=== PATIENT | male | born 1975 | race Caucasian/White ===

== ENCOUNTER 2021-01-31 01:12 | Inpatient (IN) | payer OTHER, SELFPAY ==
[2021-01-31] VITALS (32 sets, daily range): BP systolic 111–165; BP diastolic 51–127; PULSE 57–91; RESP 10–22; TEMP 36.4–37.1; O2SAT 94–100; BMI 32.9
--- NOTE | ~2021-01-31 | CT_ITS ---
EXAMINATION: CTA chest PE protocol DATE: 01/31/2021 03:13 INDICATION: Chest pain. TECHNIQUE: Computed tomography angiography (CTA) of the chest was performed with 100 mL Omnipaque-350 intravenous contrast timed to evaluate the pulmonary arteries. Coronal maximum intensity projection 3D-reconstructions were created by the technologist. Automated exposure control and iterative reconst ruction technique were employed. The dose-length product was 930.12 mGy-cm. COMPARISON: Chest 2 views 01/31/2021 FINDINGS: There is mild emphysema. There is mild atelectasis bilaterally. Calcified bilateral lung no dules are consistent with old granulomatous disease. No pleural effusion. There is no pulmonary embol us. There is severe cervical spondylosis and mild thoracic spondylosis. There is mild chronic anterio r wedging of T7 vertebral body. IMPRESSION: 1. No acute pulmonary embolism. 2. Mild emphysema. Reviewed, dictated and finalized at location A.
--- NOTE | ~2021-01-31 | XR_ITS ---
EXAMINATION: XR chest 2V DATE: 01/31/2021 02:04 INDICATION: Chest pain. TECHNIQUE: Frontal and lateral views of the chest were obtained. COMPARISON: Chest single view 07/01/2013, chest CT 01/31/2021 FINDINGS: There are lucencies in the upper lungs, consistent with emphysema. No pleural effusion or p neumothorax. The heart size is normal. There is mild chronic anterior wedging of a midthoracic verteb ral body. IMPRESSION: 1. Emphysema. Reviewed, dictated and finalized at location A. IMPRESSION: 1. Emphysema.
--- NOTE | 2021-01-31 01:20 | ECG_ITS ---
Measurements Intervals [place] Rate: 87 P: 33 CT: 154 QRS: 40 QRSD: 98 T: 39 QT: 366 QTc: 440 Interpretive Statements SINUS RHYTHM POSSIBLE LEFT ATRIAL ENLARGEMENT INCOMPLETE RIGHT BUNDLE BRANCH BLOCK BORDERLINE ECG Electronically Signed On 01-31-2021 5:25:00 CDT by Hayden Loja D.O.
[2021-01-31] MEDS: ASPIRIN 81 MG CHEWABLE TABLET 324 MG PO (01:28)
[2021-01-31 01:29] LABS: Basophils Absolute Auto 0.1 K/mm3 (0.0-0.1); Basophils Percent Auto 0.7 % (0.2-1.2); Eosinophils Absolute Auto 0.1 K/mm3 (0-0.3); Eosinophils Percent Auto 1.3 % (0-4.4); Hematocrit 48.6 % (42.0-52.0); Hemoglobin 16.6 g/dL (14.0-18.0); Immature Granulocyte Absolute 0.02 K/mm3 (0.00-0.031); Immature Granulocyte Percent A 0.2 % (0-0.5); Lymphocytes Absolute Auto 3.06 K/mm3 (0.9-3.2); Lymphocytes Percent Auto 35.4 % (18.3-44.2); Mean Corpuscular HGB Conc 34.2 g/dl (32-36); Mean Corpuscular Hemoglobin 31.1 pg (26-34); Mean Corpuscular Volume 91.2 fl (80-100); Mean Platelet Volume 10.2 fl (7.4-10.4); Monocytes Absolute Auto 0.8 K/mm3 (0.1-0.6); Monocytes Percent Auto 8.9 % (2.6-8.5); Neutrophils Absolute Auto 4.6 K/mm3 (1.3-6.7); Neutrophils Percent Auto 53.5 % (45.5-73.1); Platelet Count Result 177 k/mm3 (150-375); Red Blood Count 5.33 M/mm3 (4.6-6.20); Red Cell Distribution Width 12.7 % (11.5-14.5); White Blood Count 8.7 K/mm3 (4.5-10.0)
--- NOTE | 2021-01-31 01:37 | ED.CHESTPAIN ---
HPI - Chest Pain General Chief Complaint: Chest Pain Stated Complaint: CP Time Seen by Provider: 01/31/21 01:18 Source: RN notes reviewed History of Present Illness HPI narrative: Patient presents emergency department from home for chest pain patient states that over the last month has been having intermittent left-sided chest pain he states he has had more frequent episodes over the past 2 days pain is located in the left upper chest and goes in the left shoulder into the left back the pain is described as a pressure sensation and will last for several minutes and then resolve he states it is associated with some shortness of breath he denies any fevers or chills abdominal pain nausea vomiting he denies any current pain patient denies any previous cardiac history Related Data Home Medications Medication Instructions Recorded Confirmed atorvastatin 01/31/21 esomeprazole magnesium [Nexium] 20 mg PO DAILY 01/31/21 hydrocodone-acetaminophen tablet 01/31/21 Allergies Allergy/AdvReac Type Severity Reaction Status Date / Time No Known Allergies Allergy Unverified 01/31/21 01:21 Review of Systems Review of Systems: Gen.: Denies fevers or chills ENT: Denies congestion Respiratory: Reports shortness of breath with chest CV: See HPI GI: Denies abdominal pain nausea, emesis or diarrhea Musculoskeletal: Denies back pain or muscle pain Neuro: Denies numbness, tingling, weakness or focal weakness Skin: Denies rash Except as documented, all other systems reviewed and negative [facility] Past Medical History Medical History (Updated 01/31/21 @ 05:11 by Jesse Tolentino DO) Hypercholesterolemia Social History Social History (Updated 01/31/21 @ 05:05 by Jesse Tolentino DO) Smoking packs per day: 2.5 Smoking cigarettes per day: 50.0 Smoking status: Current every day smoker Exam Narrative: APPEARANCE: No acute distress, nontoxic, resting in bed EYES: EOMI HEENT: Normocephalic, atraumatic, OMM RESPIRATORY: No respiratory distress Clear to auscultation bilaterally with no rhonchi wheezing or rales. CARDIOVASCULAR: Regular rate and rhythm without murmurs rubs or gallops. ABDOMINAL: Soft, nontender, nondistended, no rebound or guarding MUSCULOSKELETAl: Moves all extremities. No clubbing, cyanosis or edema. NEURO: Awake and alert. Following commands, speech normal, no focal deficits SKIN:: Warm, dry. No rashes lesions or abrasions PSYCHIATRIC: Normal affect/mood, Course Course Emergency Course: Patient is remained asymptomatic through stay in ED with no chest pain while in the ED Called discussed with Dr. Sands presentation work-up agrees with admission to the chest pain center Discussed with patient and family results of workup and diagnosis. Discussed need for admission. Patient and family understand and agree to current treatment plan Shortly after admission orders placed troponin came back elevated called and updated Dr. Sands will change admission I am you. We discussed anticoagulation the patient has had no chest pain throughout his stay in ED she recommends no anticoagulation at this time Vital Signs Vital signs: Vital Signs Temperature 97.6 F 01/31/21 01:16 Pulse Rate 90 01/31/21 01:16 Respiratory Rate 17 01/31/21 01:16 Blood Pressure 164/127 H 01/31/21 01:16 Pulse Oximetry 97 01/31/21 01:16 Temperature 97.6 F 01/31/21 01:16 Pulse Rate 74 01/31/21 04:58 Respiratory Rate 18 01/31/21 04:58 Blood Pressure 140/89 01/31/21 04:58 Pulse Oximetry 100 01/31/21 04:58 MDM - Chest Pain Lab Data Result diagrams: 01/31/21 01:24 01/31/21 01:24 Labs: Lab Results 01/31/21 01/31/21 01/31/21 Range/Units 01:23 01:23 01:24 WBC 8.7 (4.5-10.0) K/mm3 RBC 5.33 (4.6-6.20) M/mm3 Hgb 16.6 (14.0-18.0) g/dL Hct 48.6 (42.0-52.0) % MCV 91.2 (80-100) fl MCH 31.1 (26-34) pg MCHC 34.2 (32-36) g/dl RDW 12.7 (11
[2021-01-31 01:43] LABS: Prothrombin Time 12.9 Seconds (11.1-14.7)
[2021-01-31 01:44] LABS: Partial Thromboplastin Time 27.9 SECONDS (22.3-36.8)
[2021-01-31 01:50] LABS: Anion Gap 8 mmol/L (8-16); Blood Urea Nitrogen 19 mg/dL (9-20); Calcium 9.8 mg/dL (8.4-10.2); Carbon Dioxide 27 mmol/L (22-30); Chloride 106 mmol/L (98-107); Estimated CRCL calculation 104 ml/min; Estimated Glomerular Filt Rate > 60; Glucose 131 mg/dL (65-110); Potassium 3.9 mmol/L (3.4-5.0); Sodium 141 mmol/L (137-145)
[2021-01-31 02:03] LABS: Troponin I 0.013 ng/mL (0.000-0.034)
--- NOTE | 2021-01-31 02:11 | PC.NURSE ---
Called lab to add on Hepatic, D-Dimer 0216
[2021-01-31 02:24] LABS: D Dimer 0.64 ug/mL (<0.48)
[2021-01-31 02:28] LABS: Alanine Aminotransferase 18 U/L (4-50); Albumin Level 4.7 g/dL (3.5-5.1); Alkaline Phosphatase 81 U/L (38-126); Aspartate Amino Transferase 30 U/L (17-59); Bilirubin,Total 0.8 mg/dL (0.2-1.3)
[2021-01-31 05:04] LABS: Troponin I 0.078 ng/mL (0.000-0.034)
--- NOTE | 2021-01-31 05:15 | ECG_ITS ---
Measurements Intervals [place] Rate: 76 P: 44 CA: 151 QRS: 10 QRSD: 104 T: 30 QT: 379 QTc: 428 Interpretive Statements SINUS RHYTHM POSSIBLE LEFT ATRIAL ENLARGEMENT INCOMPLETE RIGHT BUNDLE BRANCH BLOCK BASELINE ARTIFACT- II, III, AVR, AVF, V1, V3-V6 BORDERLINE ECG Electronically Signed On 01-31-2021 5:28:11 CDT by Hayden DHILLON
[2021-01-31 05:39] LABS: Cholesterol 154 mg/dL (0-200); HDL Direct 38 mg/dL; Triglycerides 83 mg/dL (<150)
--- NOTE | 2021-01-31 05:44 | ADMGEN ---
This patient, Anup Yates, was admitted to IMU Room 205-01. Patient/family oriented to hospital policies and general routines including ID bracelet, bed and alarms, visiting hours, pain management, procedures, bathroom and other care routines, personal items, smoking policy, room service/diet, and visiting hours. Information on how to activate the Rapid Response Team has been discussed. Patient/Family are encouraged to report perceived risks to care and to ask questions if they do not understand what they are told or what they should do.
[2021-01-31 05:50] LABS: LDL Cholesterol Direct 89 mg/dL
--- NOTE | 2021-01-31 08:06 | PM.IMHP ---
H&P: HPI History of Present Illness Date/Time: 01/31/21 08:06 Chief Complaint: Chest pain, Acute coronary syndrome Narrative: Mr. elena Da Silva is a 45-year-old white male who came to the emergency room when he woke with chest pain yesterday. 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 He describes this as a pressure and tightness that starts in his left shoulder and axilla going across his chest, radiating around to his back and interscapular area, associated with sweats. It seems to be resolved with rest. Sometimes it seems positional and can be relieved by stretching. It seems to be increasing in frequency and for the last couple of nights he is actually awakened with this intense chest discomfort which was new. He came to the emergency room last night and had elevated troponin. He has been pain-free since admission. He has a history of hyperlipidemia and 2.5 pack per day smoking. No hypertension or diabetes, and no bleeding problems. He was diagnosed with prostate cancer recently is under going evaluation, considering options which may include prostatectomy. PMD is Dr. Rod. Review of Systems Constitutional: Constitutional: Denies fatigue, Denies lethargy and Denies weakness Eyes: Eyes: Reports no additional eye complaints ENT: Denies epistaxis Cardiovascular: Cardiovascular: Reports chest pain, Reports diaphoresis, Denies pedal edema, Denies leg edema, Denies lightheadedness and Denies palpitations Respiratory: Respiratory: Denies cough, Denies dyspnea and Denies dyspnea on exertion Gastrointestinal: Gastrointestinal: Denies abdominal pain and Denies hematochezia Genitourinary: Genitourinary: Denies hematuria Musculoskeletal: Musculoskeletal: Reports arthralgias Integumentary/Breasts: Skin/Breast: Denies rash Neurologic: Denies headache(s) Psychiatric: Psychiatric: Denies behavioral changes [facility] Past Medical History Medical History Hypercholesterolemia Prostate cancer Skin cancer Tobacco use Family History Family History (Updated 01/31/21 @ 08:34 by Anusha Sands MD) Mother Pancreatic cancer Father , in his 70s, patient not sure why, no heart disease No problems noted. 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 Smoking packs per day: 2.5 Smoking cigarettes per day: 50.0 Years smoked: 30 Smoking pack-years: 75.00 Smoking status: Current every day smoker Tobacco type: cigarettes Second hand tobacco smoke exposure: Yes Alcohol intake: never Alcohol use details: Two drinks a month Substance use: current Substance use type: marijuana Living arrangements: with family Occupation/Education: occupation Additional occupation/education comments: [employer] work Spiritual care concerns: No Meds Home Medications and Allergies Home Medications Medication Instructions Recorded Confirmed Type atorvastatin 20 mg PO DAILY 01/31/21 01/31/21 History esomeprazole magnesium [Nexium] 20 mg PO DAILY 01/31/21 01/31/21 History hydrocodone-acetaminophen 10 tablet PO QID PRN 01/31/21 01/31/21 History Allergies Allergy/AdvReac Type Severity Reaction Status Date / Time No Known Allergies Allergy Unverified 01/31/21 01:21 Vital Signs Vital Signs - 24 hr 01/31/21 01:16 01/31/21 01:20 01/31/21 03:08 Temperature 97.6 F Pulse Rate 90 86 90 Respiratory Rate 17 14 Blood Pressure 164/127 H 145/90 H Pulse Oximetry 97 97 01/31/21 03:15 01/31/21 04:58 01/31/21 05:39 Temperature 97.9 F Pulse Rate 91 74 85 Respiratory Rate 15 18 18 Blood Pressure 111/72 140/89 156/85 H Pulse Oximetry 99 100 100 01/31/21 06:00 Temperature Pulse Rate 74 Respiratory Rate Blood Pressure Pulse Oximetry Exam Const: General: comf
--- NOTE | 2021-01-31 08:30 | WPDMODSED ---
Moderate Sedation Note-Pt Data Patient Data Allergies Allergy/AdvReac Type Severity Reaction Status Date / Time No Known Allergies Allergy Unverified 01/31/21 01:21 Home Medications Medication Instructions Recorded Confirmed Type atorvastatin 20 mg PO DAILY 01/31/21 01/31/21 History esomeprazole magnesium [Nexium] 20 mg PO DAILY 01/31/21 01/31/21 History hydrocodone-acetaminophen 10 tablet PO QID PRN 01/31/21 01/31/21 History Current Medications: Active Medications Acetaminophen (Acetaminophen 325 Mg Tablet) 650 mg PO Q4H PRN PRN Reason: Mild Pain (1-3) Al Hydrox/Mg Hydrox/Simethicone (Mag Hydrox/Al Hydrox/Simeth 30 Ml Udc) 30 ml PO Q6H PRN PRN Reason: Indigestion Aspirin (Aspirin 81 Mg Chewable Tablet) 81 mg PO DAILY@0800 QUINT[place] Nitroglycerin (Nitroglycerin Sl 0.4 Mg Tablet) 0.4 mg SUBLINGUAL Q5MIN PRN PRN Reason: Chest Pain Ondansetron HCl (Ondansetron Inj 4 Mg/2 Ml Vial) 4 mg IV PUSH Q6H PRN PRN Reason: Nausea And Vomiting Sedation/Anesthesia: No previous sedation/anesthesia problems (including family history). [facility] Past Medical History Medical History (Updated 01/31/21 @ 05:11 by Jesse Tolentino DO) Hypercholesterolemia Social History Social History (Updated 01/31/21 @ 05:05 by Jesse Tolentino DO) Smoking packs per day: 2.5 Smoking cigarettes per day: 50.0 Years smoked: 30 Smoking pack-years: 75.00 Smoking status: Current every day smoker Tobacco type: cigarettes Second hand tobacco smoke exposure: Yes Alcohol intake: never Substance use: current Spiritual care concerns: No Mod Sed Physical Exam Physical Exam Pre Procedural Exam: Normal: Throat Hours since solid foods: 10 Hours since liquid intake: 10 Mallampati Classification: class II Internal Medicine - PN: Obj Da Vital Signs Vital Signs: Vital Signs - 24 hr 01/31/21 01:16 01/31/21 01:20 01/31/21 03:08 Temperature 36.4 C Pulse Rate 90 86 90 Respiratory Rate 17 14 Blood Pressure 164/127 H 145/90 H Pulse Oximetry 97 97 01/31/21 03:15 01/31/21 04:58 01/31/21 05:39 Temperature 36.6 C Pulse Rate 91 74 85 Respiratory Rate 15 18 18 Blood Pressure 111/72 140/89 156/85 H Pulse Oximetry 99 100 100 01/31/21 06:00 01/31/21 08:00 Temperature 36.4 C Pulse Rate 74 86 Respiratory Rate 14 Blood Pressure 138/78 Pulse Oximetry 98 Meds/Results Medications: Active Medications Generic Name Dose Route Start Last Admin Trade Name Freq PRN Reason Stop Dose Admin Acetaminophen 650 mg 01/31/21 05:00 Acetaminophen 325 Mg Tablet PO Q4H PRN Mild Pain (1-3) Al Hydrox/Mg Hydrox/Simethicone 30 ml 01/31/21 05:00 Mag Hydrox/Al Hydrox/Simeth 30 Ml Udc PO Q6H PRN Indigestion Aspirin 81 mg 01/31/21 08:00 Aspirin 81 Mg Chewable Tablet PO DAILY@0800 [place] Nitroglycerin 0.4 mg 01/31/21 05:00 Nitroglycerin Sl 0.4 Mg Tablet SUBLINGUAL Q5MIN PRN Chest Pain Ondansetron HCl 4 mg 01/31/21 05:00 Ondansetron Inj 4 Mg/2 Ml Vial IV PUSH Q6H PRN Nausea And Vomiting Radiology Results: ITS Impressions Chest X-Ray 01/31/21 06:52 IMPRESSION: 1. Emphysema. Chest CTA 01/31/21 07:28 IMPRESSION: 1. No acute pulmonary embolism. 2. Mild emphysema. Labs CBC & Chem 7: 01/31/21 01:24 01/31/21 01:24 Labs: Laboratory Results - last 24 hr 01/31/21 01/31/21 01/31/21 01:23 01:23 01:24 WBC 8.7 RBC 5.33 Hgb 16.6 Hct 48.6 MCV 91.2 MCH 31.1 MCHC 34.2 RDW 12.7 Plt Count 177 MPV 10.2 Immature Gran % (Auto) 0.2 Neut % (Auto) 53.5 Lymph % (Auto) 35.4 [place] % (Auto) 8.9 H Eos % (Auto) 1.3 Baso % (Auto) 0.7 Lymph # (Auto) 3.06 [place] # (Auto) 0.8 H Eos # (Auto) 0.1 Baso # (Auto) 0.1 Abs Immat Gran (auto) 0.02 Absolute Neuts (auto) 4.6 Absolute Nucleated RBC 0.0 Nucleated RBC % 0.0 PT INR APTT D-Dimer
--- NOTE | 2021-01-31 10:12 | WPDCARDPROC ---
Cardiac Cath Procedure Note Date of procedure:: 01/31/21 Performing physician:: Augusto Lee MD Procedure Procedure note:: CARDIAC CATHETERIZATION AND PERCUTANEOUS CORONARY INTERVENTION REPORT DATE OF PROCEDURE: 01/31/2021 INDICATION FOR PROCEDURE: Acute coronary syndrome-non ST-elevation myocardial infarction BRIEF CLINICAL HISTORY: 45-year-old male with no known prior cardiac history; tobacco abuse presented to [facility] with worsening anginal chest pain for about 1 month. His EKG showed sinus rhythm, incomplete right bundle branch block, no acute ST segment abnormality. First set of troponin was negative, seconds and was minimally elevated at 0.078. He was seen by Dr. Sands, and referred for coronary angiogram in the setting of non ST-elevation myocardial infarction. Benefits and risks of the procedure were discussed with the patient in depth, and informed consent was obtained prior to the procedure. Risks of the procedure include but are not limited to vascular complications including groin hematoma, retroperitoneal bleed, vessel perforation; periprocedural [place], cardiac arrhythmias, stroke, contrast induced nephropathy, and . After discussing all the benefits, risks and alternatives, patient was willing to proceed with the procedure. PROCEDURES PERFORMED: 1. Left heart catheterization- Selective left and right coronary angiogram; left ventriculogram and hemodynamic assessment 2. Complex percutaneous coronary intervention- balloon angioplasty and stenting of high-grade, hazy stenosis in the mid LAD using 3.5 x 38 mm resolute vinicius zotarolimus eluting stent (adjunctive aspiration thrombectomy using export catheter; intracoronary nitroprusside, nitroglycerin, adenosine, eptifibatide) 3. Defibrillation x1 for VFib cardiac arrest ( PCI was complicated by no-reflow phenomena, and after gnosticism of flow in the LAD, patient went into ventricular fibrillation which was successfully defibrillated x1 with gnosticism of sinus rhythm) 3. Selective right common femoral angiogram 4. Moderate sedation-CPT code 31621 MODERATE SEDATION: Midazolam 4 mg; fentanyl 100 mcg. Start time 0837 , Stop time 0957 ; Total [id number] time 80 minutes; Jeremiah Gnuter RN was trained observer for moderate sedation. ACCESS SITE: Right common femoral artery PROCEDURE NOTE: After obtaining informed consent, patient was brought to catheterization lab and prepped and draped in a usual sterile manner. After local anesthesia with lidocaine, right common femoral artery access was taken with micropuncture needle followed by insertion of a 6 Montenegrin sheath. Selective left and right coronary angiogram was performed using 5 Mont[place]grin JL4 and JR4 catheters respectively. Orthogonal views were taken. Next, a 5 Montenegrin pigtail catheter was advanced in the LV cavity and was flushed with normal saline. LV pressure measurement was performed. After this, left ventriculogram was performed. The catheter was flushed again, and gradient across the aortic valve was measured on the pullback of the catheter. Selective right common femoral angiogram was performed after PCI which showed high bifurcating femoral artery. Closure device was not deployed. Manual pressure was used for local hemostasis. FINDINGS: LEFT MAIN CORONARY: the left main coronary artery is a large caliber vessel, without angiographically significant focal stenosis. The vessel trifurcates into LAD, ramus intermedius and dominant left circumflex artery. LEFT ANTERIOR DESCENDING ARTERY: The LAD is a medium to large caliber vessel in the proximal segment; becomes medium caliber vessel in the mid segment, mildly tortuous and reaches LV apex. There is high-grade 80-90% stenosis in the mid segment at the origin of the small to medium caliber diagonal branch , which has mild plaque in the proximal segment. There is haziness distal to the high-grade stenosis suggestive of thrombus. RAMUS INTERMEDIUS: Larg
--- NOTE | 2021-01-31 11:49 | WPDCNINT ---
Assessment and Plan Assessment and plan (1) Acute non-ST elevation myocardial infarction (NSTEMI): Code(s): I21.4 - Non-ST elevation (NSTEMI) myocardial infarction Status: Acute Assessment and Plan: Patient presented with chest pain NSTEMI status post coronary angiogram status post balloon angioplasty and stenting of high-grade 80-90% hazy stenosis in the mid LAD with drug-eluting stent. Post roman catholic of flow in the LAD patient went into VFib arrest, status post defibrillation x1 along with CPR with roman catholic of sinus rhythm. EF 60-65% -cardiology following the patient closely -patient will require dual antiplatelet therapy, statin, beta-perry and may be CHEN-inhibitor since he is also hypertensive (2) Tobacco use: Code(s): Z72.0 - Tobacco use Status: Acute Assessment and Plan: Patient states he smokes 2 and half to 3 packs per day for approximately 30 years along with marijuana -discussed with him regarding cessation of smoking to which she is very receptive -also counseled patient on cessation of marijuana smoking to which he is also agreeable (3) Prostate cancer: Code(s): C61 - Malignant neoplasm of prostate Status: Acute Assessment and Plan: Patient is considering prostatectomy versus more conservative management (4) Hypercholesterolemia: Code(s): E78.00 - Pure hypercholesterolemia, unspecified Status: Acute Assessment and Plan: Will discuss with cardiology regarding starting statins Additional Plan Discussed with patient updated with his condition and plan of care. He is aware that he has to lay flat in bed for some time before sheath is pulled out and once his sheath is out he will have to lay flat for a few more hours. Code status: Full code Critical care time spent: 43 minutes Discuss with This dictation may have been done utilizing a voice recognition system. Attempts have been made to correct errors. However, there may be uncorrected grammatical, spelling, and recognition errors present. Due to a high probability of clinically significant, life threatening deterioration, the patient required my highest level of preparedness to intervene emergently and I personally spent this critical care time directly and personally managing the patient. This critical care time included obtaining a history; examining the patient; pulse oximetry; ordering and review of studies; arranging urgent treatment with development of a management plan; evaluation of patient's response to treatment; frequent reassessment; and discussions with other providers. It was exclusive of separately billable procedures and treating other patients and teaching time. Please see Assessment and Plan section and the rest of the note for further information on patient assessment and treatment Material Spreader Consult Note Consult date: 01/31/21 Time Seen: 10:40 Reason for consult: Chest pain, NSTEMI status post coronary angiogram status post balloon angioplasty and stenting of high-grade 80-90% hazy stenosis in the mid LAD with drug-eluting stent. Post roman catholic of flow in the LAD patient went into VFib arrest, status post defibrillation x1 along with CPR with roman catholic of sinus rhythm. EF 60-65% HPI: Anup Yates is a 45 year old male with past medical history of prostate CA, hypercholesterolemia, skin cancer and tobacco abuse presented to the ED on 01/31/2021 with complains of chest pain. 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 He described the chest discomfort and pain this morning as pressure and tightness that radiated to his left shoulder across his chest. Related around the back. Patient also complained of shortness of breath, diaphoresis. He states that his pain has been worsening since the last few days and early this morning he was awakened with intense chest discomfort. In the ER 1st set
--- NOTE | 2021-01-31 12:25 | PC.NURSE ---
This patient, Anup Yates, was received from cardiac hoisting laborer on 01/31/21 at 1030. Patient given post-cath instructions verbally by hoisting laborer nurse and myself. Report also received from nurse Alonzo in IMU since patient moved from room 205.
[2021-01-31 13:03] LABS: Troponin I 0.146 ng/mL (0.000-0.034)
[2021-01-31] MEDS: hydrALAZINE HCL 20 MG/ML VIAL 10 MG IV PUSH (13:10)
[2021-01-31] MEDS: HYDROcodone/acetaminophen (*CRX) 5-325 MG TABLET 1 TAB PO ×2 (14:34→19:15)
[2021-01-31] MEDS: NICOTINE (*PBKC) 14 MG PATCH 1 PATCH TRANSDERM (16:35)
[2021-01-31] MEDS: METOPROLOL TARTRATE 25 MG TABLET PO ×2 (16:36→19:59)
[2021-01-31] MEDS: SODIUM CHLORIDE 0.9% IV 1,000 ML 125 ML IV CONT (19:18)
[2021-01-31] MEDS: TICAGRELOR 90 MG TABLET PO (20:00)
[2021-02-01] VITALS (7 sets, daily range): BP systolic 137–158; BP diastolic 77–87; PULSE 59–88; RESP 11–24; TEMP 36.6–37.1; O2SAT 95–97
[2021-02-01 04:36] LABS: Basophils Percent Auto 0.4 % (0.2-1.2); Eosinophils Percent Auto 0.3 % (0-4.4); Hematocrit 46.9 % (42.0-52.0); Hemoglobin 16.2 g/dL (14.0-18.0); Immature Granulocyte Absolute 0.02 K/mm3 (0.00-0.031); Immature Granulocyte Percent A 0.2 % (0-0.5); Lymphocytes Absolute Auto 1.68 K/mm3 (0.9-3.2); Lymphocytes Percent Auto 17.3 % (18.3-44.2); Mean Corpuscular HGB Conc 34.5 g/dl (32-36); Mean Corpuscular Hemoglobin 31.3 pg (26-34); Mean Corpuscular Volume 90.7 fl (80-100); Mean Platelet Volume 10.4 fl (7.4-10.4); Monocytes Absolute Auto 0.7 K/mm3 (0.1-0.6); Monocytes Percent Auto 6.7 % (2.6-8.5); Neutrophils Absolute Auto 7.3 K/mm3 (1.3-6.7); Neutrophils Percent Auto 75.1 % (45.5-73.1); Platelet Count Result 183 k/mm3 (150-375); Red Blood Count 5.17 M/mm3 (4.6-6.20); Red Cell Distribution Width 12.6 % (11.5-14.5); White Blood Count 9.7 K/mm3 (4.5-10.0)
[2021-02-01 04:46] LABS: Alanine Aminotransferase 22 U/L (4-50); Albumin Level 4.3 g/dL (3.5-5.1); Alkaline Phosphatase 76 U/L (38-126); Anion Gap 8 mmol/L (8-16); Aspartate Amino Transferase 64 U/L (17-59); Blood Urea Nitrogen 16 mg/dL (9-20); Carbon Dioxide 24 mmol/L (22-30); Chloride 107 mmol/L (98-107); Estimated CRCL calculation 131 ml/min; Estimated Glomerular Filt Rate > 60; Glucose 128 mg/dL (65-110); Magnesium 1.7 mg/dL (1.6-2.3); Phosphorus 3.5 mg/dL (2.5-4.5); Potassium 3.7 mmol/L (3.4-5.0); Sodium 139 mmol/L (137-145)
[2021-02-01] MEDS: TICAGRELOR 90 MG TABLET PO (08:01)
[2021-02-01] MEDS: METOPROLOL TARTRATE 25 MG TABLET PO (08:01)
[2021-02-01] MEDS: ASPIRIN 81 MG ENTERIC TABLET PO (08:01)
[2021-02-01] MEDS: PANTOPRAZOLE 40 MG TABLET PO (08:01)
[2021-02-01] MEDS: ATORVASTATIN 40 MG TABLET 80 MG PO (08:01)
--- NOTE | 2021-02-01 11:06 | PM.DS ---
DS: Admitting Diagnosis Discharge Date February 01, 2021 Admitting Diagnosis Acute coronary syndrome DS: Discharge Diagnosis Discharge Diagnosis (1) Acute coronary syndrome: Code(s): I24.9 - Acute ischemic heart disease, unspecified Status: Acute (2) Tobacco use: Code(s): Z72.0 - Tobacco use Status: Acute DS: Summary Hospital Course Reason for hospitalization: Chest pain/acute coronary syndrome Hospital Course: This is a 45-year-old man who was hospitalized with intermittent chest pain. He has been having the symptoms for between 1 and 2 years that have been alleviated with rest. He had a symptom episode that was more prolonged it is sustained and so he came to the emergency room where he was evaluated and admitted. He was seen in the consultation by Dr. Sands who recommended left heart catheterization. That was done yesterday by Dr. Lee. He was found to have severe single-vessel coronary disease with high-grade stenosis in the mid LAD. PCI of this was recommended and was carried out successfully but the intervention was difficult and complex. The patient patient had normal left ventricular systolic function and no circumflex or right coronary disease. Following initial pre dilatation of the mid LAD with balloon angioplasty there was no reflow phenomenon after which the patient became very unstable. He received treatment of this in the [employer] with intracoronary nitroglycerin a Brad and Integrilin and then following stenting of the LAD using a 3.5 x 38 mm drug-eluting stent he had a good anatomical result with orthodoxy of TANNA 3 flow in the vessel and a good result after that. When he had no reflow in the [employer] he did have an episode of ventricular fibrillation that had to be counter shocked. Despite all of that is troponin only went up to .1 after the procedure his electrocardiogram remained normal and he is totally asymptomatic today and appears to be a appropriate candidate for discharge. His discharge medications include aspirin, Brilinta as well as high-dose atorvastatin. He was on low-dose atorvastatin prior to admission. He will be advised not to return to work and to restrict himself to sedentary activity until being seen in the office. He was to not lift more than 20 lb for the next 5 days he is not to drive for the next 5 days. He will be seen in the office by Dr. Sands in 2-3 weeks for follow-up. Time spent discussing smoking cessation with patient: more than 10 minutes Status at Discharge Functional status at discharge: independent ambulation Overall status at discharge: patient is back to baseline Time Spent with Patient Time attestation: Total time spent providing and/or coordinating discharge services: Time spent: Greater than 30 minutes Exam Const: General: comfortable and no acute distress Other: Patient is not lift more than 20 lb for the next 5 days and is not to return to driving or return to work for 1 week HENMT: Mouth: Yes moist mucous membranes Eyes: Sclera: sclerae normal Pupils: Equal, round and reactive pupils present Neck: Neck: supple and no JVD Thyroid: thyroid normal Resp: Effort & Inspection: normal respiratory effort Auscultation: clear to auscultation bilaterally Cardio: Rate: regular rate Rhythm: regular rhythm Other: No murmur no gallop GI: GI Palp: Yes Soft to palpation Auscultation: normal bowel sounds Skin: General skin exam: normal color Neuro: General: gait normal Extrem: General: normal to inspection Psych: Mental Status: mental status grossly normal DS: Data Data Completed and Pending Labs on day of discharge: Labs from last 24 hours 02/01/21 02/01/21 01/31/21 04:28 04:28 10:48 WBC 9.7 RBC 5.17 Hgb 16.2 Hct 46.9 MCV 90.7 MCH 31.3 MCHC 34.5 RDW 12.6 Plt Count 183 MPV 10.4 Immature Gran % (Auto) 0.2 Neut % (Auto) 75.1 H Lymph % (Auto) 17.3 L Stoddard % (Auto) 6.7 Eos % (Au
--- NOTE | 2021-02-01 13:46 | WPDINTPN ---
Progress Note: A&P Assessment and Plan (1) Acute non-ST elevation myocardial infarction (NSTEMI): Code(s): I21.4 - Non-ST elevation (NSTEMI) myocardial infarction Status: Acute Assessment and Plan: Patient presented with chest pain NSTEMI status post coronary angiogram status post balloon angioplasty and stenting of high-grade 80-90% hazy stenosis in the mid LAD with drug-eluting stent. Post zoroastrian of flow in the LAD patient went into VFib arrest, status post defibrillation x1 along with CPR with zoroastrian of sinus rhythm. EF 60-65% -cardiology following the patient closely -patient is on antiplatelet therapy, statin therapy and beta-perry (2) Tobacco use: Code(s): Z72.0 - Tobacco use Status: Acute Assessment and Plan: Patient states he smokes 2 and half to 3 packs per day for approximately 30 years along with marijuana -discussed with him regarding cessation of smoking to which she is very receptive -also counseled patient on cessation of marijuana smoking to which he is also agreeable (3) Prostate cancer: Code(s): C61 - Malignant neoplasm of prostate Status: Acute Assessment and Plan: Patient is considering prostatectomy versus more conservative management (4) Hypercholesterolemia: Code(s): E78.00 - Pure hypercholesterolemia, unspecified Status: Acute Assessment and Plan: Continue high-dose statin Additional Plan Discussed with patient updated with his condition and plan of care. Code status: Full code Critical care time spent: [address] Briscoe This dictation may have been done utilizing a voice recognition system. Attempts have been made to correct errors. However, there may be uncorrected grammatical, spelling, and recognition errors present. Due to a high probability of clinically significant, life threatening deterioration, the patient required my highest level of preparedness to intervene emergently and I personally spent this critical care time directly and personally managing the patient. This critical care time included obtaining a history; examining the patient; pulse oximetry; ordering and review of studies; arranging urgent treatment with development of a management plan; evaluation of patient's response to treatment; frequent reassessment; and discussions with other providers. It was exclusive of separately billable procedures and treating other patients and teaching time. Please see Assessment and Plan section and the rest of the note for further information on patient assessment and treatment Subjective Date/time seen: 02/01/21 13:46 Interval history: Reason for consult: Chest pain, NSTEMI status post coronary angiogram status post balloon angioplasty and stenting of high-grade 80-90% hazy stenosis in the mid LAD with drug-eluting stent. Post zoroastrian of flow in the LAD patient went into VFib arrest, status post defibrillation x1 along with CPR with zoroastrian of sinus rhythm. EF 60-65% 02/01/2021: Patient seen and examined the ICU, denies any chest pain, shortness of right abdominal pain, nausea, vomiting. Hemodynamically stable. No arrhythmias noted on telemetry overnight. Urine output has been adequate, patient is afebrile tolerating p.o. diet Review of Systems Review of Systems: All systems reviewed & are unremarkable except as noted in HPI and below Exam Const: General: comfortable and no acute distress HENMT: Mouth: Yes moist mucous membranes Eyes: Sclera: sclerae normal Pupils: Equal, round and reactive pupils present Neck: Neck: supple Thyroid: thyroid normal Lymphatic: lymphadenopathy not noted Resp: Effort & Inspection: normal respiratory effort Auscultation: clear to auscultation bilaterally Cardio: Rate: regular rate Rhythm: regular rhythm GI: Inspection: non-distended GI Palp: Yes Soft to palpation and No Tenderness to palpation present (GI) Auscultation: normal bowel
== END 2021-02-01 12:35 | disposition home or self-care (01) | DRG 174 ==
LOC: ANHED 05:10 → ANHIMU 05:22 → ANHICU 10:37
PROVIDERS: Internal Medicine; Internal Medicine Cardiovascular Disease; Admitting Provider Internal Medicine Cardiovascular Disease; Emergency Provider Emergency Medicine; PCP Family Medicine; Visit Provider Specialist
PROC: 4A023N7 Measurement of Cardiac Sampling and Pressure, Left Heart, Percutaneous Approach (ICD-10-PCS; CPT 93452; principal; 2021-01-31 08:30)
PROC: 027034Z Dilation of Coronary Artery, One Artery with Drug-eluting Intraluminal Device, Percutaneous Approach (ICD-10-PCS; 2021-01-31 08:30)
PROC: 027034Z Dilation of Coronary Artery, One Artery with Drug-eluting Intraluminal Device, Percutaneous Approach (ICD-10-PCS; CPT 92973; 2021-01-31 08:30)
DX: I21.4 Non-ST elevation (NSTEMI) myocardial infarction (principal); I25.10 Atherosclerotic heart disease of native coronary artery without angina pectoris; C61 Malignant neoplasm of prostate; E78.00 Pure hypercholesterolemia, unspecified; F17.210 Nicotine dependence, cigarettes, uncomplicated; I97.190 Other postprocedural cardiac functional disturbances following cardiac surgery; I49.01 Ventricular fibrillation; I97.710 Intraoperative cardiac arrest during cardiac surgery; Z85.828 Personal history of other malignant neoplasm of skin
CPT/HCPCS: 36415; 71046; 71275; 80048; 80053; 80061; 80076; 83735; 84100; 84484; 85025; 85380; 85610; 85730; 92973; 93005; 93458; 96374; 99291; A9270; C1725; C1757; C1769; C1874; C1887; C1894; C9600; G0378; G0379; J0153; J0360; J0583; J1327; J1644; J2250; J3010; J7030; J7040; J7050; Q9967

== ENCOUNTER 2022-04-13 13:34 | Outpatient (CLI) | payer OTHER, SELFPAY ==
--- NOTE | ~2022-04-13 | CT_ITS ---
EXAMINATION: CT abdomen pelvis w con INDICATION: Unspecified abdominal pain TECHNIQUE: Computed tomographic images of the abdomen and pelvis were obtained after the administrati on of 100 cc of Omnipaque 350 intravenous contrast. The dose-length product (DLP) was 996.79 mGy-cm. Automated exposure control and iterative reconstruction technique were employed. COMPARISON: None available FINDINGS: The lung bases are clear. The heart size is normal. Punctate calcifications in an otherwise normal spleen likely represent healed granulomatous disease. The liver, pancreas, gallbladder, and a drenal glands are normal. The kidneys are unremarkable. There is a 3.2 cm fusiform infrarenal abdomin al aortic aneurysm. No pathologically enlarged abdominal or pelvic lymph nodes are identified. There is no free intraperitoneal gas or evidence of bowel obstruction. There is a small volume of pelvic as cites. Colonic diverticulosis is present without evidence of diverticulitis. There is a 5.8 x 3.7 cm cystic area in the anterolateral left pelvis abutting the urinary bladder without abnormal contrast e nhancement. There are bilateral pars defects at L3 with 6 mm of anterolisthesis of L3 on L4. There is severe loss of intervertebral disc space height at and L3-4 and moderate loss of disc space height a t L4-5. IMPRESSION: 1. 3.2 cm fusiform infrarenal abdominal aortic aneurysm. 2. Bilateral pars defects at L3 with grade 1 anterolisthesis of L3 on L4. 3. Cystic lesion of the left pelvis which could reflect a bladder diverticulum or possibly lymphangio ma or peritoneal inclusion cyst. Reviewed, dictated and finalized at location [facility] [employer] IMPRESSION: 1. 3.2 cm fusiform infrarenal abdominal aortic aneurysm. 2. Bilateral pars defects at L3 with grade 1 anterolisthesis of L3 on L4. 3. Cystic lesion of the left pelvis which could reflect a bladder diverticulum or possibly lymphangioma or peritoneal inclusion cyst.
[2022-04-13 13:55] LABS: Estimated Glomerular Filt Rate > 60
== END 2022-04-13 13:35 | disposition home or self-care (01) ==
PROVIDERS: PCP Family Medicine; Visit Provider Family Medicine
DX: R10.9 Unspecified abdominal pain (principal); I71.43 Infrarenal abdominal aortic aneurysm, without rupture; M53.86 Other specified dorsopathies, lumbar region; M43.16 Spondylolisthesis, lumbar region; R93.41 Abnormal radiologic findings on diagnostic imaging of renal pelvis, ureter, or bladder
CPT/HCPCS: 74177; Q9967

== ENCOUNTER 2022-08-15 06:35 | Outpatient (CLI) | payer OTHER, SELFPAY ==
--- NOTE | ~2022-08-15 | MR_ITS ---
MRI of the lumbar spine Clinical History: Degenerative disc disease Technique: Axial T2-weighted images, and sagittal T1-weighted, T2-weighted, and and T2 fat-sat images were acquired. Findings: There is no fracture in the lumbar spine. 6-7 mm anterolisthesis of L3 over L4 noted. There are reactive marrow signal changes about the L3-L4 disc space due to underlying degenerative disc di sease. At L1-L2 and L2-L3, there is no disc bulge or herniation. There is mild facet arthropathy at these le vels. There is a synovial cyst posteriorly in the midline at the L2-L3 level (sagittal image 8), kimberly uring 2.4 cm in craniocaudal extent. There is mild posterior mass effect upon the thecal sac, with mi ld anterior displacement of the cauda equina nerve roots, but no spinal canal stenosis. No neural for aminal narrowing at these levels. At L3-L4, there is severe degenerative disc narrowing with disc uncovering/bulge. There is mild facet arthropathy. No spinal canal stenosis. There is severe left neural foraminal narrowing and mild righ t neural foraminal narrowing. At L4-L5, there is mild disc bulge and mild facet arthropathy. No spinal canal stenosis. There is mil d to moderate right neural foraminal narrowing and minimal left neural foraminal narrowing. At L5-S1, there is mild disc bulge. There is minimal facet arthropathy. No spinal canal stenosis or n eural foraminal narrowing. Paravertebral soft tissues are otherwise unremarkable. Impression: 6-7 mm anterolisthesis of L3 over L4. Synovial cyst posteriorly in the midline at the L2-L3 level, with mild anterior displaced of the caud a equina roots, but no buster spinal canal stenosis. Severe left neural foraminal narrowing at L3-L4. Additional mild degenerative spondylitic changes, as above. Reviewed, dictated and finalized at location . Impression: 6-7 mm anterolisthesis of L3 over L4. Synovial cyst posteriorly in the midline at the L2-L3 level, with mild anterior displaced of the cauda equina roots, but no buster spinal canal stenosis. Severe left neural foraminal narrowing at L3-L4. Additional mild degenerative spondylitic changes, as above.
== END 2022-08-15 06:36 | disposition home or self-care (01) ==
PROVIDERS: PCP Family Medicine; Visit Provider Family Medicine
DX: M51.36 Other intervertebral disc degeneration, lumbar region (principal)
CPT/HCPCS: 72148